=== PATIENT | female | born 2000 | race Hispanic/Latino ===

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

== ENCOUNTER 2024-02-08 07:13 | Emergency (ER) | payer SELFPAY ==
[~2024-02-08] VITALS: Ht 152.4 cm; Wt 68.0 kg
[2024-02-08 08:13] VITALS: BP 121/82; PULSE 65; RESP 20; O2SAT 100
== END 2024-02-08 08:14 | disposition home or self-care (01) ==
LOC: EDH 07:13
DX: T16.1XXA Foreign body in right ear, initial encounter (principal); W44.F4XA Insect entering into or through a natural orifice, initial encounter; Y93.89 Activity, other specified; Y92.89 Other specified places as the place of occurrence of the external cause; Y99.8 Other external cause status
CPT/HCPCS: 99282

== ENCOUNTER 2024-03-17 19:35 | Emergency (ER) | payer SELFPAY ==
[~2024-03-17] VITALS: Ht 152.4 cm; Wt 68.0 kg
[2024-03-17] MEDS: teTANUS/diphthERIA TOXOID [ADULT] 0.5 ML VIAL IM ONE (19:52)
[2024-03-17] MEDS ORDERED: CEPH500T PO (19:53)
[2024-03-17] MEDS ORDERED: NEOMY SULF/BACITRA/POLYMYXIN B 1 EACH PACKET TP ONE (20:00)
[2024-03-17] MEDS ORDERED: acetaMINOPHEN 500 MG TABLET PO ONE ×2 (20:00)
[2024-03-17 20:01] VITALS: BP 112/74; PULSE 74; RESP 16; TEMP 98.4; O2SAT 99
== END 2024-03-17 20:05 | disposition home or self-care (01) ==
LOC: EDH 19:35
DX: S61.012A Laceration without foreign body of left thumb without damage to nail, initial encounter (principal); W26.0XXA Contact with knife, initial encounter; Y93.89 Activity, other specified; Y92.89 Other specified places as the place of occurrence of the external cause; Y99.8 Other external cause status
CPT/HCPCS: 90471; 90714